=== PATIENT | female | born 1970 | race Two or more races ===

== ENCOUNTER 2017-08-15 10:39 | Emergency (ER) | payer BC, OTHER ==
[2017-08-15 10:46] VITALS: TEMP 97.8; BMI 34.7
[2017-08-15 13:33] LABS: URINE APPEARANCE CLEAR; URINE BILIRUBIN NEGATIVE (NEGATIVE); URINE BLOOD 2+ (NEGATIVE); URINE COLOR LT. YELLOW; URINE GLUCOSE (UA) NEGATIVE (NEGATIVE); URINE KETONE TRACE (NEGATIVE); URINE NITRITE NEGATIVE (NEGATIVE); URINE UROBILINOGEN 0.2 mg/dL (0.2-1.0)
[2017-08-15 13:35] LABS: URINE PROTEIN 1+ (NEGATIVE)
--- NOTE | 2017-08-15 13:35 | PDOC ---
History of Present Illness <Jimmie Gordon - Last Filed: 08/15/17 18:27> - General History Source: Patient Exam Limitations: No Limitations - History of Present Illness Initial Comments: 08/15/17 18:54 The patient is a 47 year old female, with a significant past medical history of Asthma, Sciatica who presents to the emergency department with bloody stool, interrmittent cramping LLQ abdominal pain and back pain for the past 2 days. Patient reports intermittent, burning LLQ abdominal pain with associated dark red bloody stool (with clots). Patient notes eating beets yesterday and reports this may be the cause of her bowel color. Patient denies any exacerbating factors however reports defecating alleviates her abdominal pain. Patient states her back pain feels different from sciatica and has been taking Motrin/ Aspirin for the past week. Patient reports dark urine however denies dysuria, frequency, urgency or hematuria. Patient also states she has been drinking more heavily since the holiday and has been eating more junk food recently. LMP: 2 weeks ago She denies chest pain, headache or dizziness. She denies fever, chills, nausea, vomit, diarrhea or constipation. She denies Patient denies sick contacts or recent travel. Allergies: shellfish Past surgical history: Gastric bypass (4 years ago) Social history: Current everyday smoker <Sulma Chavarria - Last Filed: 08/15/17 18:55> - General Chief Complaint: Rectal Bleed Stated Complaint: ABD PAIN, BLOOD IN STOOL Time Seen by Provider: 08/15/17 12:43 Past History - Past Medical History Anemia: No Asthma: Yes Cancer: No Cardiac Disorders: No CVA: No COPD: No CHF: No Dementia: No Diabetes: No GI Disorders: No Disorders: No HTN: No Hypercholesterolemia: No Liver Disease: No Seizures: No Thyroid Disease: No - Surgical History Abdominal Surgery: Yes (GASTRIC BYPASS 211) Appendectomy: No Cardiac Surgery: No Cholecystectomy: No Lung Surgery: No Neurologic Surgery: No Orthopedic Surgery: No - Immunization History Immunization Up to Date: Yes - Suicide/Smoking/Psychosocial Hx Smoking Status: No Smoking History: Current every day smoker Have you smoked in the past 12 months: Yes Number of Cigarettes Smoked Daily: 2 Information on smoking cessation initiated: Yes 'Breaking Loose' booklet given: 08/15/17 Hx Alcohol Use: No Drug/Substance Use Hx: No Substance Use Type: None Hx Substance Use Treatment: No <Jimmie Gordon - Last Filed: 08/15/17 18:27> <Sulma Chavarria - Last Filed: 08/15/17 18:55> - Past Medical History Allergies/Adverse Reactions: Allergies Allergy/AdvReac Type Severity Reaction Status Date / Time shellfish derived Allergy cant breath Verified 08/15/17 10:42 Home Medications: Ambulatory Orders NK [No Known Home Medication] 08/15/17 Review of Systems - Review of Systems Able to Perform ROS?: Yes Comments:: 08/15/17 18:55 CONSTITUTIONAL: No reported: Fever, Chills, Diaphoresis, Generalized Weakness, Malaise, Loss of Appetite HEENT: No reported: Rhinorrhea, Nasal Congestion, Throat Pain, Throat Swelling, Difficulty Swallowing, Mouth Swelling, Ear Pain, Eye Pain, Visual Changes CARDIOVASCULAR: No reported: Chest Pain, Syncope, Palpitations, Irregular Heart Rate, Lightheadedness, Peripheral Edema RESPIRATORY: No reported: Cough, Shortness of Breath, SOB with Exertion, Orthopnea, Wheezing, Stridor, Hemoptysis GASTROINTESTINAL: +bloody stool. +LLQ abdominal pain. No reported: Abdominal pain, Abdominal Distension, Nausea, Vomiting, Diarrhea, Constipation, Melena, Hematochezia GENITOURINARY: No reported: Dysuria, Frequency, Urgency, Hesitancy, Flank Pain, Genital Pain MUSCULOSKELETAL:+ Back pain No reported: Myalgia, Arthralgia, Joint Swelling, , Neck Pain SKIN: No reported: Rash, Itching, Pallor HEMEATOLOGIC/IMMUNOLOGIC: No reported: Easy Bleeding, Easy Bruising, Lymphadenopathy, Frequent infections ENDOCRINE: No reported: Unexplained Weight Gain, Unexplained Weight Loss, Heat Intolerance, Cold Intolerance NEUROLOGIC: No reported: Headache, Focal Weakness, Paresthesias, Vertigo, Lightheadedness, Unsteady Gait, Seizure, Mental Status Changes, Incontinence PSYCHIATRIC: No reported: Anxiety, Depression <Sulma Chavarria - Last Filed: 08/15/17 18:55> *Physical Exam - Vital Signs Last Vital Signs Temp Pulse Resp BP Pulse Ox 97.8 F 99 H 18 146/86 100 08/15/17 10:43 08/15/17 10:43 08/15/17 10:43 08/15/17 10:43 08/15/17 10:43 <Heidi,Jimmie - Last Filed: 08/15/17 18:27> - Vital Signs Last Vital Signs Temp Pulse Resp BP Pulse Ox 97.8 F 74 18 133/74 97 08/15/17 10:43 08/15/17 18:32 08/15/17 18:32 08/15/17 18:32 08/15/17 15:23 - Physical Exam Comments: 08/15/17 18:55 GENERAL: The patient is awake, alert, and fully oriented, Nontoxic - in no acute distress. HEAD: Normocephalic, atraumatic. EYES: extraocular movements intact, sclera anicteric, conjunctiva clear. ENT: Normal voice, Moist mucous membranes. NECK: Normal range of motion, supple LUNGS: Breath sounds equal, clear to auscultation bilaterally. No wheezes, no rhonchi, no rales. HEART: Regular rate and rhythm, without murmur, rub or gallop. ABDOMEN: +Mild LLQ tenderness. Soft, nontender, normoactive bowel sounds. No guarding, no rebound.No CVA tenderness EXTREMITIES: Normal range of motion, no edema. No clubbing or cyanosis. No cords, erythema, or tenderness. NEUROLOGICAL: No facial assymetry, Normal speech, PSYCH: Normal mood, normal affect. SKIN: Warm, Dry, normal turgor. RECTAL: +Maroon colored stool. No hemorrhoids. <Sulma Chavarria - Last Filed: 08/15/17 18:55> Heart Score/ECG Review - ECG Impressions Comment:: 08/15/17 14:15 Twelve-lead EKG was performed and reviewed by me. There is normal sinus rhythm with a normal rate. Rate of 82 The axis is normal. The intervals are normal. There are no ST or T wave abnormalities. <Jimmie Gordon - Last Filed: 08/15/17 18:27> ED Treatment Course - LABORATORY CBC & Chemistry Diagram: 08/15/17 13:50 08/15/17 13:50 <HeidiJimmie - Last Filed: 08/15/17 18:27> - LABORATORY CBC & Chemistry Diagram: 08/15/17 13:50 08/15/17 13:50 - ADDITIONAL ORDERS Additional order review: Laboratory Results 08/15/17 08/15/17 08/15/17 13:50 13:50 13:20 Sodium 139 Potassium 4.5 Chloride 108 H Carbon Dioxide 22 Anion Gap 9 BUN 11 D Creatinine 1.1 H D Creat Clearance w eGFR 53.24 Random Glucose 106 D Calcium 8.9 Total Bilirubin 0.4 AST 21 D ALT 24 D Alkaline Phosphatase 102 Total Protein 8.2 Albumin 4.0 Urine Color Urine Appearance Urine pH Ur Specific [place] Urine Protein Urine Glucose (UA) Urine Ketones Urine Blood Urine Nitrite Urine Bilirubin Urine Urobilinogen Urine WBC (Auto) Urine RBC (Auto) Ur Epithelial Cells Hyaline Casts Urine Mucus Urine HCG, Qual Negative Stool Occult Blood Negative 08/15/17 13:19 Sodium Potassium Chloride Carbon Dioxide Anion Gap BUN Creatinine Creat Clearance w eGFR Random Glucose Calcium Total Bilirubin AST ALT Alkaline Phosphatase Total Protein Albumin Urine Color Lt. yellow Urine Appearance Clear Urine pH 5.0 Ur Specific [place] >= 1.030 Urine Protein 1+ H Urine Glucose (UA) Negative Urine Ketones Trace H Urine Blood 2+ H Urine Nitrite Negative Urine Bilirubin Negative Urine Urobilinogen 0.2 Urine WBC (Auto) 1 Urine RBC (Auto) <1 Ur Epithelial Cells Rare Hyaline Casts 3 Urine Mucus Few Urine HCG, Qual Stool Occult Blood 08/15/17 13:50 RBC 4.91 MCV 82.8 MCHC 32.7 RDW 17.2 H D MPV 8.5 Neutrophils % 63.0 Lymphocytes % 30.0 Monocytes % 5.1 Eosinophils % 1.7 Basophils % 0.2 <Sulma Chavarria - Last Filed: 08/15/17 18:55> Medical Decision Making - Medical Decision Making 08/15/17 13:17 47y F hx of asthma and s/p gastric bypass presents with LLQ pain ntermittently/ bloating, diffuse, associated with a few episodes of dark red stool and dark urine but pt notes she had beets 2 days ago. No nsaid abuse or hx of ulcers. no associated cp, sob, palpitations, fever/chills, n/v. exam noted for reddish stool - no hemorroids no signiciant abdominal tenderness. differential includes possible LGIB, divertlicular disease, kidney stones, red stool from beets will ck labs, stool guaiac will erassess A portion of this note was documented by scribe services under my direction. I have reviewed the details of the note, within reason, and agree with the documentation with the following case summary and management plan written by me 08/15/17 16:42 blood work reivewed guaiac negativ estool +blood in UA awaiting CT to r/o kidney stone 08/15/17 18:01 CT negative for pathology The patient is feeling improved repeat abdominal exam is normal Will discharge the patient to follow up with primary care Return precautions were discussed I discussed the physical exam findings, ancillary test results and final diagnoses with the patient. I answered all of the patient's questions. The patient was satisfied with the care received and felt comfortable with the discharge plan and treatment plan. The patient will call their primary care physician within 24 hours to arrange follow-up and will return to the Emergency Department with any new, persistent or worsening symptoms. <Jimmie Gordon - Last Filed: 08/15/17 18:27> *DC/Admit/Observation/Transfer - Discharge Dispostion Admit: No <Jimmie Gordon - Last Filed: 08/15/17 18:27> - Attestations Scribe Attestion: 08/15/17 18:45 Documentation prepared by Sulma Chavarria, acting as medical office technologist for Jimmie Gordon MD <Sulma Chavarria - Last Filed: 08/15/17 18:55> Diagnosis at time of Disposition: Abdominal pain Qualifiers: Abdominal location: left lower quadrant Qualified Code(s): R10.32 - Left lower quadrant pain Hematuria Qualifiers: Hematuria type: other microscopic Qualified Code(s): R31.29 - Other microscopic hematuria - Discharge Dispostion Disposition: HOME Condition at time of disposition: Improved - Patient Instructions Printed Discharge Instructions: DI for Abdominal Pain-Adult Additional Instructions: Return to the emergency department immediately with ANY new, persistent or worsening symptoms including worsening abdominal pain, fevers, inability to tolerate oral intake, chest pain, shortness of breath or any other concerns. Your stool did not have any blood in it - i suspect it is due to the beet juice you drank. There was some blood in your urine - please follow up with your doctor in 3-4 days ot have this rechecked. Stay well hydrated. You MUST call and follow up with your doctor. Your emergency department visit is not complete without a followup with your doctor for reevaluation. Please make sure your doctor reviews the results of your emergency evaluation. Print Language: URDU - Post Discharge Activity Forms/Work/School Notes: Back to Work
[2017-08-15 13:45] LABS: URINE HYALINE CAST 3 /lpf; URINE MUCUS FEW; URINE RBC <1 /hpf (0-3); URINE WBC 1 /hpf (3-5)
[2017-08-15 14:04] LABS: BASOPHIL 0.2 % (0-2.0); EOSINOPHIL 1.7 % (0-4.5); MCH 27.1 pg (25.7-33.7); MCHC 32.7 g/dl (32.0-36.0); MEAN CELL VOLUME 82.8 fl (80-96); MEAN PLT VOLUME 8.5 fl (7.5-11.1); PLATELET COUNT 333 K/MM3 (134-434); RDW 17.2 % (11.6-15.6); WHITE BLOOD COUNT 11.6 K/mm3 (4.0-10.0)
[2017-08-15 15:29] LABS: ALK PHOS 102 U/L (45-117); ANION GAP 9 (8-16); BILIRUBIN,TOTAL 0.4 mg/dL (0.2-1.0); CALCIUM 8.9 mg/dL (8.5-10.1); CO2 22 mmol/L (21-32); CREATININE 1.1 mg/dL (0.55-1.02); GLUCOSE,RANDOM 106 mg/dL (74-106); SGOT/AST 21 U/L (15-37); SGPT/ALT 24 U/L (12-78); TOT PROT 8.2 g/dl (6.4-8.2)
[2017-08-15 17:27] LABS: URINE LEUK ESTERASE Negative (NEGATIVE)
[2017-08-15 18:32] VITALS: BP 133/74; PULSE 74
--- NOTE | 2017-08-16 13:03 | EKG ---
Test Reason : Blood Pressure : / mmHG Vent. Rate : 082 BPM Atrial Rate : 082 BPM P-R Int : 138 ms QRS Dur : 072 ms QT Int : 398 ms P-R-T Axes : 055 013 039 degrees QTc Int : 464 ms NORMAL SINUS RHYTHM POSSIBLE LEFT ATRIAL ENLARGEMENT ANTERIOR INFARCT , AGE UNDETERMINED ABNORMAL ECG WHEN COMPARED WITH ECG OF 31-MAY-2016 15:32, NONSPECIFIC T WAVE ABNORMALITY NOW EVIDENT IN LATERAL LEADS Confirmed by ANJANA LAMBERT MD ([id number]) on 08/16/2017 1:02:52 PM Referred By: Confirmed By:ANJANA LAMBERT MD
== END 2017-08-15 18:30 | disposition home or self-care (01) ==
LOC: JER 10:39
DX: R31.29 Other microscopic hematuria (principal); R10.32 Left lower quadrant pain; F17.210 Nicotine dependence, cigarettes, uncomplicated
CPT/HCPCS: 36415; 74176-TC; 80053; 81003; 81015; 82272; 84703; 85025; 93005; 93010; 99284-25

== ENCOUNTER 2017-11-15 17:40 | Emergency (ER) | payer BC, OTHER ==
--- NOTE | 2017-11-15 17:51 | PDOC ---
Rapid Medical Evaluation Time Seen by Provider: 11/15/17 17:48 Medical Evaluation: Allergies Allergy/AdvReac Type Severity Reaction Status Date / Time shellfish derived Allergy cant breath Verified 11/15/17 17:48 11/15/17 17:48 I have performed a brief in-person evaluation of this patient. The patient presents with a chief complaint of: low back/abdominal pain " burning to back" x 9 days, diagnosed w/ sciatica 5 years but "feels different", returned monday from [facility] and was lifting suitcases ALSO: feeling bloating, "i think i have a tampon stuck inside, i have a smell coming out since yesterday", denies dysuria, + urinary frequency Pertinent physical exam findings: N/A I have ordered the following: urine The patient will proceed to the ED for further evaluation. Discharge Disposition - Diagnosis Vaginal foreign body - Referrals - Patient Instructions - Post Discharge Activity
[2017-11-15 17:52] VITALS: BP 139/105; PULSE 76; TEMP 97.9; BMI 34.7
[2017-11-15 18:38] LABS: URINE APPEARANCE CLEAR; URINE BILIRUBIN NEGATIVE (NEGATIVE); URINE BLOOD 2+ (NEGATIVE); URINE COLOR YELLOW; URINE GLUCOSE (UA) NEGATIVE (NEGATIVE); URINE KETONE NEGATIVE (NEGATIVE); URINE LEUK ESTERASE NEGATIVE (NEGATIVE); URINE NITRITE NEGATIVE (NEGATIVE)
[2017-11-15 18:41] LABS: URINE PROTEIN 1+ (NEGATIVE)
[2017-11-15 18:42] LABS: HCG,QUALITATIVE URINE NEGATIVE
--- NOTE | 2017-11-15 18:42 | PDOC ---
*Physical Exam - Vital Signs Last Vital Signs Temp Pulse Resp BP Pulse Ox 97.9 F 76 19 139/105 100 11/15/17 17:48 11/15/17 17:48 11/15/17 17:48 11/15/17 17:48 11/15/17 17:48 Medical Decision Making - Medical Decision Making 11/15/17 18:39 Ms Cooley came in to the ER today due to retained tampon Present for approximately 3 weeks NO fevers or chills On examination: Tampon found in the vaginal vault Tampon retrieved and discarded UA pending Uhcg pending Will discharge to home on Flagyl Laboratory Tests 11/15/17 18:30 Urine Blood 2+ H Urine Nitrite Negative Ur Leukocyte Esterase Negative Urine HCG, Qual Negative *DC/Admit/Observation/Transfer Diagnosis at time of Disposition: Vaginal foreign body Qualifiers: Encounter type: initial encounter Qualified Code(s): T19.2XXA - Foreign body in vulva and vagina, initial encounter - Discharge Dispostion Disposition: HOME Condition at time of disposition: Good - Prescriptions Prescriptions: Metronidazole 500 mg PO BID #14 tablet - Referrals Referrals: Paco Hall [Primary Care Provider] - - Patient Instructions Printed Discharge Instructions: DI for Bacterial Vaginosis Additional Instructions: We have covered you with antibiotics for possible vaginal bacterial vaginosis. It is important that you do not drink alcohol while on this medication and for up to 24 hours after your last dose. If abdominal pain worsens and/or you develop nausea, vomiting or fever, return to ER immediately - Post Discharge Activity
--- NOTE | 2017-11-15 18:46 | PDOC ---
History of Present Illness - General Chief Complaint: Pain, Acute Stated Complaint: ABDOMINAL/BACK PAIN Time Seen by Provider: 11/15/17 17:48 History Source: Patient - History of Present Illness Quality: reports: cramping Abdominal Pain Onset Location: reports: suprapubic Past History - Past Medical History Allergies/Adverse Reactions: Allergies Allergy/AdvReac Type Severity Reaction Status Date / Time shellfish derived Allergy cant breath Verified 11/15/17 17:48 Home Medications: Ambulatory Orders Metronidazole 500 mg PO BID #14 tablet 11/15/17 Anemia: No Asthma: Yes Cancer: No Cardiac Disorders: No CVA: No COPD: No CHF: No Dementia: No Diabetes: No GI Disorders: No Disorders: No HTN: No Hypercholesterolemia: No Liver Disease: No Seizures: No Thyroid Disease: No - Surgical History Abdominal Surgery: Yes (GASTRIC BYPASS 211) Appendectomy: No Cardiac Surgery: No Cholecystectomy: No Lung Surgery: No Neurologic Surgery: No Orthopedic Surgery: No - Immunization History Immunization Up to Date: Yes - Suicide/Smoking/Psychosocial Hx Smoking Status: No Smoking History: Current some day smoker Have you smoked in the past 12 months: Yes Number of Cigarettes Smoked Daily: 2 Information on smoking cessation initiated: No 'Breaking Loose' booklet given: 08/15/17 Hx Alcohol Use: No Drug/Substance Use Hx: No Substance Use Type: None Hx Substance Use Treatment: No Review of Systems - Review of Systems Constitutional: No: Chills, Fever ABD/GI: No: Nausea, Vomiting : No: Burning, Dysuria, Flank Pain, Hematuria *Physical Exam - Vital Signs Last Vital Signs Temp Pulse Resp BP Pulse Ox 97.9 F 76 19 139/105 100 11/15/17 17:48 11/15/17 17:48 11/15/17 17:48 11/15/17 17:48 11/15/17 17:48 - Physical Exam General Appearance: Yes: Appropriately Dressed. No: Apparent Distress HEENT: positive: Normal Voice Neck: positive: Supple Respiratory/Chest: negative: Respiratory Distress Female Pelvic Exam: positive: normal external exam, cervical os closed, other ( foul smelling tampon removed from vault, no cmt/adnexal ttp). negative: normal adnexa, CMT, discharge Gastrointestinal/Abdominal: positive: Soft. negative: Tender Musculoskeletal: negative: CVA Tenderness Integumentary: positive: Dry, Warm Neurologic: positive: Fully Oriented, Alert, Normal Mood/Affect Medical Decision Making - Medical Decision Making 11/15/17 18:40 47-year-old female, history of sciatica, here with lower abdominal discomfort radiating to back with foul smelling vaginal discharge x several days. Patient denies any nausea, vomiting, fever or chills. States back pain, similar to her sciatica is mild. Patient states she suspects she might have left a tampon in from her last period > 2 weeks ago. States last night after having intercourse with her , she smelled an almost fecal odor coming from genitalia. See exam Vaginal foreign body Tampon removed from vault w/ no e/o PID -will cover w/ flagyl -ua/preg neg -strict return precautions *DC/Admit/Observation/Transfer Diagnosis at time of Disposition: Vaginal foreign body Qualifiers: Encounter type: initial encounter Qualified Code(s): T19.2XXA - Foreign body in vulva and vagina, initial encounter - Discharge Dispostion Disposition: HOME Condition at time of disposition: Good - Prescriptions Prescriptions: Metronidazole 500 mg PO BID #14 tablet - Referrals Referrals: Paco Hall [Primary Care Provider] - - Patient Instructions Printed Discharge Instructions: DI for Bacterial Vaginosis Additional Instructions: We have covered you with antibiotics for possible vaginal bacterial vaginosis. It is important that you do not drink alcohol while on this medication and for up to 24 hours after your last dose. If abdominal pain worsens and/or you develop nausea, vomiting or fever, return to ER immediately - Post Discharge Activity
[2017-11-15 18:50] LABS: EPI CELLS RARE /HPF (FEW); URINE HYALINE CAST 1 /lpf; URINE MUCUS RARE
== END 2017-11-15 18:59 | disposition home or self-care (01) ==
LOC: JER 17:40
DX: T19.2XXA Foreign body in vulva and vagina, initial encounter (principal); X58.XXXA Exposure to other specified factors, initial encounter; Y93.89 Activity, other specified; Y92.018 Other place in single-family (private) house as the place of occurrence of the external cause
CPT/HCPCS: 81003; 81015; 84703; 87086; 99284-25

== ENCOUNTER 2020-05-17 02:57 | Emergency (ER) | payer BC, OTHER ==
[2020-05-17 03:28] VITALS: BMI 37.6
[2020-05-17] MEDS ORDERED: ASPIRIN 81 MG CHEWABLE TABLETS PO ONE (03:54)
[2020-05-17] MEDS ORDERED: SODIUM CHLORIDE 0.9% 500 ML INFUS.BAG IV ONE (03:54)
[2020-05-17] MEDS ORDERED: FAMOTIDINE 20 MG/50 ML IVPB 20 MG/50 ML MG IVPB ONE ×2 (03:54→04:11)
[2020-05-17] MEDS ORDERED: MAG HYDROX/AL HYDROX/SIMETH 30 ML UNIT-DOSE CUP PO ONE (03:55)
[2020-05-17] MEDS ORDERED: ASPIRIN 81 MG CHEWABLE TABLETS ONE (04:00)
[2020-05-17] MEDS ORDERED: MAG HYDROX/AL HYDROX/SIMETH 30 ML UNIT-DOSE CUP ONE (04:00)
[2020-05-17 04:08] LABS: BASO % 0.3 % (0-2.0); EOS % 1.9 % (0-4.5); HEMATOCRIT 37.5 % (32.4-45.2); HEMOGLOBIN 12.3 GM/dL (10.7-15.3); LYMPH % 36.1 % (8-40); MCHC 32.8 g/dl (32.0-36.0); MEAN CELL VOLUME 85.5 fl (80-96); MEAN PLT VOLUME 10.1 fl (7.5-11.1); MONO % 6.5 % (3.8-10.2); NEUT % 55.2 % (42.8-82.8); PLATELET COUNT 208 K/MM3 (134-434); RBC 4.38 M/mm3 (3.60-5.2); RDW 13.6 % (11.6-15.6); WHITE BLOOD COUNT 9.9 K/mm3 (4.0-10.0)
--- NOTE | 2020-05-17 04:09 | PDOC ---
History of Present Illness - General Chief Complaint: Chest Pain Stated Complaint: CHEST PAIN/DIFF BREATHING Time Seen by Provider: 05/17/20 03:31 - History of Present Illness Initial Comments: 05/17/20 04:03 50 y/o F hx of gastric bypass, presents to the ED with 1 week of abdominal pain radiating to the left side of her chest. She reports pain as left sided pain radiating from her upper abdomen to her mid and left chest. pt reports 2 visits to urgent care in the last week for abdominal pain. ultrasound was done showing fatty liver with no other findings. pt was given tramadol and sent home. awoke 6hrs ago with pain radiating to her chest. tested negative for covid 5 days ago. denies;fevers, chills, vomiting, ocp use, hx of clots, recent surgery PMHx: as noted above ROS: as noted SHx: Denies Etoh, IVDA, tobacco use Allergies: NKDA ROS: GENERAL/CONSTITUTIONAL: No fever or chills. No weakness. HEAD, EYES, EARS, NOSE AND THROAT: No change in vision. No ear pain or discharge. No sore throat. CARDIOVASCULAR: +chest pain, +sob RESPIRATORY: No cough, wheezing, or hemoptysis. GASTROINTESTINAL: No nausea, vomiting, diarrhea or constipation. GENITOURINARY: No dysuria, frequency, or change in urination. MUSCULOSKELETAL: No joint or muscle swelling or pain. SKIN: No rash NEUROLOGIC: No headache, vertigo, loss of consciousness, or change in strength/sensation. ENDOCRINE: No increased thirst. No abnormal weight change HEMATOLOGIC/LYMPHATIC: No anemia, easy bleeding, or history of blood clots. ALLERGIC/IMMUNOLOGIC: No hives or skin allergy. PE: GENERAL: Awake, alert, and fully oriented, in no acute distress HEAD: No signs of trauma, normocephalic, atraumatic EYES: PERRLA, EOMI, sclera anicteric, conjunctiva clear ENT: Auricles normal inspection, hearing grossly normal, nares patent, oropharynx clear without exudates. Moist mucosa NECK: Normal ROM, supple, no lymphadenopathy, JVD, or masses LUNGS: No distress, speaks full sentences, clear to auscultation bilaterally HEART: Regular rate and rhythm, normal S1 and S2, no murmurs, rubs or gallops, peripheral pulses normal and equal bilaterally. ABDOMEN: Soft, ttp in LUQ with guarding normoactive bowel sounds. No guarding, no rebound. No masses EXTREMITIES : Normal inspection, Normal range of motion, no edema. No clubbing or cyanosis NEUROLOGICAL: Cranial nerves II through XII grossly intact. Normal speech, normal gait, no focal sensorimotor deficits SKIN: Warm, Dry, normal turgor, no rashes or lesions noted 05/17/20 04:09 05/17/20 04:48 Past History - Medical History Allergies/Adverse Reactions: Allergies Allergy/AdvReac Type Severity Reaction Status Date / Time shellfish derived Allergy cant breath Verified 11/15/17 17:48 Home Medications: Ambulatory Orders Metronidazole 500 mg PO BID #14 tablet 11/15/17 Famotidine [Pepcid] 40 mg PO DAILY #14 tablet 05/17/20 Anemia: No Asthma: Yes Cancer: No Cardiac Disorders: No CVA: No COPD: No CHF: No Dementia: No Diabetes: No GI Disorders: No Disorders: No HTN: No Hypercholesterolemia: No Liver Disease: No Seizures: No Thyroid Disease: No - Surgical History Abdominal Surgery: Yes (GASTRIC BYPASS 211) Appendectomy: No Cardiac Surgery: No Cholecystectomy: No Lung Surgery: No Neurologic Surgery: No Orthopedic Surgery: No - Reproductive History Is Patient Now?: No - Immunization History Immunization Up to Date: Yes - Psycho-Social/Smoking History Smoking Status: No Smoking History: Never smoked Have you smoked in the past 12 months: Yes Number of Cigarettes Smoked Daily: 2 'Breaking Loose' booklet given: 08/15/17 - Substance Abuse Hx (Audit-C & DAST Scrn) How often the patient has a drink containing alcohol: Never Score: In Men: 4 or > Positive; In Women: 3 or > Positive: 0 Screen Result (Pos requires Nsg. Audit-10AR): Negative *Physical Exam - Vital Signs Last Vital Signs Temp Pulse Resp BP Pulse Ox 97.9 F 68 20 165/92 100 05/17/20 03:26 05/17/20 03:26 05/17/20 03:26 05/17/20 03:26 05/17/20 03:26 ED Treatment Course - LABORATORY CBC & Chemistry Diagram: 05/17/20 03:30 05/17/20 03:30 - RADIOLOGY Radiology Studies Ordered: Category Date Time Status CHEST X-RAY PORTABLE* [RAD] Stat Radiology 05/17/20 03:32 Ordered Medical Decision Making - Medical Decision Making 05/17/20 04:03 50 y/o F hx of gastric bypass, presents to the ED with 1 week of abdominal pain radiating to the left side of her chest. She reports pain as left sided pain radiating from her upper abdomen to her mid and left chest. MDM DDx including but not limited to: acs, peptic ulcer/gastritis, pancreatitis, perforation secondary to ulcer, Workup: cbc, cmp lipase, abdomen and pelvis ct, TX: Scores - HEART score - EKG: normal sinus rhythm,HR 66bpm, NJ 132ms, QRS 72 ms, QTc 457ms ED course meds: Re-assessment: Pt reports only mild improvement in pain after pepcid, mylanta and fluids, carafate and tylenol added. will reassess and sign out to day team pt reports she has gi follow up on june 01 via [facility] abdomen and pelvis ct FINDINGS: Lung bases are clear. The visualized cardiac chambers are normal size and configuration. 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 No renal stones or hydronephrosis. Normal liver, gallbladder, pancreas, spleen, adrenal glands . Status post gastric bypass without bowel obstruction or inflammation.. There is no aortic aneurysm. There is no significant retroperitoneal lymphadenopathy. The pelvic small and large bowel are normal. The appendix is normal. The uterus and adnexal structures are normal. Urinary bladder is unremarkable. There is no pelvic free fluid. No discrete pelvic lymphadenopathy is identified. A small fat-containing right inguinal hernia is noted IMPRESSION: No evidence of acute pathology. Ectopic pelvic right kidney 05/17/20 06:36 Discharge - Discharge Information Problems reviewed: Yes Clinical Impression/Diagnosis: Acid reflux disease Disposition: HOME - Admission No - Additional Discharge Information Prescriptions: Famotidine [Pepcid] 40 mg PO DAILY #14 tablet - Follow up/Referral Referrals: Paco Hall [Primary Care Provider] - - Patient Discharge Instructions Patient Printed Discharge Instructions: DI for Chest Pain, DI for Gastritis Additional Instructions: HOME CARE INSTRUCTIONS: For the next few days, avoid physical activities that bring on chest pain. Continue physical activities as directed. Do not smoke and avoid drinking alcohol. Only take infj-aki-ckezrzk or prescription medicine for pain, discomfort, or fever as directed by your physician. Follow your physician's suggestions for further testing if your chest pain does not go away. Keep any follow-up appointments you made. If there is any problem keeping an appointment, please call to reschedule. SEEK MEDICAL CARE IF: You think you are having problems from the medicine you are taking. Read your medicine instructions carefully. You develop chest pain does not go away, even after treatment. SEEK IMMEDIATE MEDICAL CARE IF: You have increased chest pain or pain that spreads to your arm, neck, jaw, back, or abdomen. You develop shortness of breath, an increasing cough, or you start coughing up blood. You have severe back or abdominal pain, feel nauseous, or vomit You develop severe weakness, fainting, or chills. You have a fever. THESE ARE EMERGENCIES - Do not drive yourself to the hospital. you have follow up with your GI doctor at [facility] on the . make sure you keep that appointment and take medications prescribed to you as directed. - Post Discharge Activity
[2020-05-17 04:21] LABS: ALBUMIN 3.6 g/dl (3.4-5.0); ALK PHOS 101 U/L (45-117); ANION GAP 10 MMOL/L (8-16); BILIRUBIN,TOTAL 0.2 mg/dL (0.2-1); BLOOD UREA NITROGEN 12.3 mg/dL (7-18); CALCIUM 8.7 mg/dL (8.5-10.1); CHLORIDE 110 mmol/L (98-107); CO2 22 mmol/L (21-32); CREATININE 1.1 mg/dL (0.55-1.3); GLUCOSE,RANDOM 101 mg/dL (74-106); LIPASE 144 U/L (73-393); SGOT/AST 32 U/L (15-37); SGPT/ALT 45 U/L (13-61); SODIUM 142 mmol/L (136-145); TOT PROT 7.2 g/dl (6.4-8.2)
--- NOTE | 2020-05-17 04:51 | PDOC ---
Attending Attestation - Resident Resident Name: Sandra Sharp - ED Attending Attestation I have performed the following: I have examined & evaluated the patient, The case was reviewed & discussed with the resident, I agree w/resident's findings & plan, Exceptions are as noted - HPI HPI: 05/17/20 04:46 50 yo F p/w abdominal pain radiating to her chest x1 week. Seen at urgent care for similar symptoms and had sono done which showed fatty liver but otherwise unremarkable. Denies n/v. Denies diarrhea or constipation. Denies cough, fevers, nasal congestion or sick contacts. Reports occasional SOB when she is lying flat. States abdominal pain is L sided and feels like she has gas. - Physicial Exam PE: 05/17/20 04:48 General: non-toxic appearing Chest: CTAB, good air entry CVS: + s1 s2, RRR Abdomen: obese limiting exam, soft, mild epigastric ttp, no rebound, no guarding, negative cavanaugh's - Medical Decision Making 05/17/20 04:49 50 yo F with abdominal pain radiating to chest , possible GERD vs. gastritis vs. enteritis vs. lower suspicion for ACS and EKG without ischemic changes. Lower suspicion for obstruction as patient denies change in bowel habits. Also no urinary complaints to suggest UTI/pyelo. Very unlikely dissection or AAA given duration of symptoms. Given h/o gastric bypass possible internal hernia. Plan: -labs -cxr -CT a/p -pain control as needed -reassess This clinical encounter is taking place during a federal and state health care emergency attributable to the novel [place] Virus pandemic. The [employer] of the Department of Health and Human Services has declared, pursuant to the Public Health Service Act 319F-3 (42 U.S.C. 247d-6d), that a covered persons activities related to medical countermeasures against COVID-19 will be immune from liability under Federal and State law. Discharge - Discharge Information Problems reviewed: Yes Clinical Impression/Diagnosis: Acid reflux disease Qualifiers: Esophagitis presence: esophagitis presence not specified Qualified Code(s): K21.9 - Gastro-esophageal reflux disease without esophagitis Condition: Stable Disposition: HOME - Additional Discharge Information Prescriptions: Famotidine [Pepcid] 40 mg PO DAILY #14 tablet - Follow up/Referral Referrals: Chad Aaron MD [Staff Physician] - Paco Hall [Primary Care Provider] - - Patient Discharge Instructions Patient Printed Discharge Instructions: DI for Gastritis, DI for Chest Pain Additional Instructions: HOME CARE INSTRUCTIONS: For the next few days, avoid physical activities that bring on chest pain. Continue physical activities as directed. Do not smoke and avoid drinking alcohol. Only take ikwj-geu-ffzksbf or prescription medicine for pain, discomfort, or fever as directed by your physician. Follow your physician's suggestions for further testing if your chest pain does not go away. Keep any follow-up appointments you made. If there is any problem keeping an appointment, please call to reschedule. SEEK MEDICAL CARE IF: You think you are having problems from the medicine you are taking. Read your medicine instructions carefully. You develop chest pain does not go away, even after treatment. SEEK IMMEDIATE MEDICAL CARE IF: You have increased chest pain or pain that spreads to your arm, neck, jaw, back, or abdomen. You develop shortness of breath, an increasing cough, or you start coughing up blood. You have severe back or abdominal pain, feel nauseous, or vomit You develop severe weakness, fainting, or chills. You have a fever. THESE ARE EMERGENCIES - Do not drive yourself to the hospital. you have follow up with your GI doctor at [facility] on the . make sure you keep that appointment and take medications prescribed to you as directed. - Post Discharge Activity
[2020-05-17 05:50] VITALS: TEMP 98
[2020-05-17] MEDS ORDERED: ACETAMINOPHEN 1000 MG/100 ML VIAL (NON FORMULARY) IVPB ONE (06:26)
[2020-05-17] MEDS ORDERED: SUCRALFATE 1 GM/10 ML UNIT DOSE CUPS PO ONE (06:40)
--- NOTE | 2020-05-17 07:13 | PDOC ---
*Physical Exam - Vital Signs Last Vital Signs Temp Pulse Resp BP Pulse Ox 98 F 70 17 151/88 98 05/17/20 05:49 05/17/20 05:49 05/17/20 05:49 05/17/20 05:49 05/17/20 05:49 ED Treatment Course - LABORATORY CBC & Chemistry Diagram: 05/17/20 03:30 05/17/20 03:30 - ADDITIONAL ORDERS Additional order review: Laboratory Results 05/17/20 05/17/20 03:30 03:26 Sodium 142 Potassium 4.0 Chloride 110 H Carbon Dioxide 22 Anion Gap 10 BUN 12.3 Creatinine 1.1 Est GFR (CKD-EPI)AfAm 67.79 Est GFR (CKD-EPI)NonAf 58.49 Random Glucose 101 Calcium 8.7 Total Bilirubin 0.2 AST 32 ALT 45 Alkaline Phosphatase 101 Troponin I < 0.02 Total Protein 7.2 Albumin 3.6 Lipase 144 Serum , Qual Negative 05/17/20 03:30 RBC 4.38 MCV 85.5 MCHC 32.8 RDW 13.6 D MPV 10.1 D Neutrophils % 55.2 Lymphocytes % 36.1 D Monocytes % 6.5 Eosinophils % 1.9 Basophils % 0.3 - Medications Given in the ED: ED Medications Discontinued Medications Generic Name Dose Route Start Last Admin Trade Name Freq PRN Reason Stop Dose Admin Acetaminophen 1,000 mg 05/17/20 06:26 05/17/20 06:52 Ofirmev Injection - IVPB 05/17/20 06:27 1,000 mg ONCE ONE Administration Al Hydroxide/Mg Hydroxide 30 ml 05/17/20 03:55 05/17/20 04:10 Mylanta Oral Suspension - PO 05/17/20 03:56 30 ml ONCE ONE Administration Aspirin 324 mg 05/17/20 03:54 05/17/20 04:10 Asa - PO 05/17/20 03:55 324 mg ONCE ONE Administration Famotidine/Sodium Chloride 20 mg in 50 mls @ 100 mls/hr 05/17/20 03:54 05/17/20 04:20 Pepcid 20 Mg Premixed Ivpb - IVPB 05/17/20 04:23 100 mls/hr ONCE ONE Administration Sodium Chloride 1,000 ml 05/17/20 03:54 05/17/20 04:10 Normal Saline - IV 05/17/20 03:55 1,000 ml ONCE ONE Administration Sucralfate 1 gm 05/17/20 06:40 05/17/20 06:52 Carafate Oral Suspension - PO 05/17/20 06:41 1 gm ONCE ONE Administration Medical Decision Making - Medical Decision Making pt signed out by night team 50 y/o F hx of gastric bypass, presents to the ED with 1 week of abdominal pain. pending completion of Tylenol, fluids will give additional GI f/u Disposition Discharge home Discharge - Discharge Information Problems reviewed: Yes Clinical Impression/Diagnosis: Acid reflux disease Qualifiers: Esophagitis presence: esophagitis presence not specified Qualified Code(s): K21.9 - Gastro-esophageal reflux disease without esophagitis Condition: Stable Disposition: HOME - Additional Discharge Information Prescriptions: Famotidine [Pepcid] 40 mg PO DAILY #14 tablet - Follow up/Referral Referrals: Paco Hall [Primary Care Provider] - Chad Aaron MD [Staff Physician] - - Patient Discharge Instructions Patient Printed Discharge Instructions: DI for Gastritis, DI for Chest Pain Additional Instructions: HOME CARE INSTRUCTIONS: For the next few days, avoid physical activities that bring on chest pain. Continue physical activities as directed. Do not smoke and avoid drinking alcohol. Only take jyqd-oqv-lpfqheh or prescription medicine for pain, discomfort, or fever as directed by your physician. Follow your phys ician's suggestions for further testing if your chest pain does not go away. Keep any follow-up appointments you made. If there is any problem keeping an appointment, please call to reschedule. SEEK MEDICAL CARE IF: You think you are having problems from the medicine you are taking. Read your medicine instructions carefully. You develop chest pain does not go away, even after treatment. SEEK IMMEDIATE MEDICAL CARE IF: You have increased chest pain or pain that spreads to your arm, neck, jaw, back, or abdomen. You develop shortness of breath, an increasing cough, or you start coughing up blood. You have severe back or abdominal pain, feel nauseous, or vomit You develop severe weakness, fainting, or chills. You have a fever. THESE ARE EMERGENCIES - Do not drive yourself to the hospital. you have follow up with your GI doctor at [facility] on the . make sure you keep that appointment and take medications prescribed to you as directed. - Post Discharge Activity
[2020-05-17 07:40] VITALS: BP 141/79; PULSE 66
--- NOTE | 2020-05-17 11:55 | EKG ---
Test Reason : Blood Pressure : / mmHG Vent. Rate : 066 BPM Atrial Rate : 066 BPM P-R Int : 132 ms QRS Dur : 072 ms QT Int : 436 ms P-R-T Axes : 018 000 036 degrees QTc Int : 457 ms NORMAL SINUS RHYTHM MINIMAL VOLTAGE CRITERIA FOR LVH, MAY BE NORMAL VARIANT ABNORMAL ECG Confirmed by NED SMITH MD ([id number]) on 05/17/2020 11:55:15 AM Referred By: Confirmed By:NED SMITH MD
== END 2020-05-17 07:40 | disposition home or self-care (01) ==
LOC: JER 02:57
PROC: 3E0333Z Introduction of Anti-inflammatory into Peripheral Vein, Percutaneous Approach (ICD-10-PCS; principal; 2020-05-17)
PROC: 3E033GC Introduction of Other Therapeutic Substance into Peripheral Vein, Percutaneous Approach (ICD-10-PCS; 2020-05-17)
DX: K21.9 Gastro-esophageal reflux disease without esophagitis (principal)
CPT/HCPCS: 36415; 71046-TC-FY; 74177-TC; 80053; 83690; 84484; 84703; 85025; 93005; 93010; 99285-25; J0131; Q9967

== ENCOUNTER 2020-06-03 12:45 | Day surgery (SDC) | payer BC, OTHER ==
--- OUTSIDE RECORDS SUMMARY | 2020-06-03 09:48 | XMS ---
:1970 Author Organization [facility] Support Name Relationship Address Phone PEGGY PERALTA DAUGHTER [address] [place] [address] [facility]PT OF EDUCATIO Unavailable [address] [place] [address] VICKY MEHTA [address] [place] [address] VICKY MEHTA Spouse [address] [place] [place] [address] Re-disclosure Warning The records that you are about to access may contain information from federally- assisted alcohol or drug abuse programs. If such information is present, then the following federally mandated warning applies: This information has been disclosed to you from records protected by federal confidentiality rules (42 CFR part 2). The federal rules prohibit you from making any further disclosure of this information unless further disclosure is expressly permitted by the written consent of the person to whom it pertains or as otherwise permitted by 42 CFR part 2. A general authorization for the release of medical or other information is NOT sufficient for this purpose. The Federal rules restrict any use of the information to criminally investigate or prosecute any alcohol or drug abuse patient.The records that you are about to access may contain highly sensitive health information, the redisclosure of which is protected by Article 27-F of the [facility] Public Health law. If you continue you may haveaccess to information: Regarding HIV / AIDS; Provided by facilities licensed or operated by the [facility] Office of Mental Health; or Provided by the [facility] Office for People With Developmental Disabilities. If such information is present, then the following [facility] mandated warning applies: This information has been disclosed to you from confidential records which are protected by state law. State law prohibits you from making any further disclosure of this information without the specific written consent of the person to whom it pertains, or as otherwise permitted by law. Any unauthorized further disclosure in violation of state law may result in a fine or halfway sentence or both. A general authorization for the release of medical or other information is NOT sufficient authorization for further disclosure. Insurance Providers Payer Policy type Policy ID Covered Covered democrat's Policy Pl an name / Coverage democrat ID relationship to [employer] ormation type flynn BC PPO [id number] SP [id number] [facility] [address] [id number] SP [id number] OUTPT BC PPO [id number] SP [id number] [facility] [address] [id number] SP [id number] OUTPT Results ID Date Data Source [id number] 05/31/2020 09:43:00 AM EDT [facility] Name Value Range Interpretation Description Data Sup porting Code Source(s) Document(s ) SARS [facility] coronavirus 2 RNA This lab was ordered by [facility] and reported by [facility]. ID Date Data Source [id number] 05/12/2020 12:30:00 PM EDT [facility] Name Value Range Interpretation Code Description Data Ayleen rce(s) Supporting Document(s ) COV2 [facility] This lab was ordered by [facility] and reported by [facility]. Procedure
[2020-06-03 14:01] VITALS: BMI 35.8
[2020-06-03] MEDS ORDERED: PROPOFOL 20 ML ONE ×2 (14:24)
--- OUTSIDE RECORDS SUMMARY | 2020-06-03 17:23 | XMS ---
:1970 Author Organization [facility] Support Name Relationship Address Phone PEGGY PERALTA DAUGHTER [address] [place] [address] [facility] DEPT OF EDUCATIO Unavailable [address] [place] [address] VICKY MEHT[address] [place] [address] VICKY MEHTA Sp[address] [place] [address] Re-disclosure Warning The records that you are [...] is protected by Article 27-F of the [facility] Public Health law. If you continue you may haveaccess to information: Regarding HIV / AIDS; Provided by facilities licensed or operated by the [facility] Office of Mental Health; or Provided by the [facility] Office for People With Developmental Disabilities. If such information is present, then the following [facility] mandated warning applies: This information has [...] law may result in a fine or skilled nursing sentence or both. A general authorization for the release of medical or other information is NOT sufficient authorization for further disclosure. Insurance Providers Payer Policy type Policy ID Covered Covered green party's Policy Pl an name / Coverage green party ID relationship to [employer] or[employer] type flynn BC PPO [id number] SP [id number] [facility] [id number] SP [id number] OUTPT BC PPO [id number] SP [id number] [facility] [id number] SP [id number] OUTPT Results ID Date Data Source [id number] 05/31/2020 09:43:00 AM EDT [facility] Name Value Range Interpretation Description Data Sup porting Code Source(s) Document(s ) SARS [facility] coronavirus 2 RNA This lab was ordered by [facility] and reported by [facility]. ID Date Data Source [id number] 05/12/2020 12:30:00 PM EDT [facility] Name Value Range Interpretation Code Description Data Ayleen rce(s) Supporting Document(s ) COV2 [facility] This lab was ordered by [facility] and reported by [facility]. Procedure
[2020-06-03 18:08] VITALS: TEMP 97.8
[2020-06-03 18:12] VITALS: BP 120/85; PULSE 75
--- NOTE | 2020-06-05 19:25 | PATH ---
Surgical Pathology Report Patient Name: CARI PERALTA [facility]. Rec. #: [id number] /Age/Gender: 1970 (Age: 50) / F Account: [id number] Location: [facility] Taken: 06/03/2020 Received: 06/03/2020 Reported: 06/05/2020 Physicians: Terri Malone M.D. Specimen(s) Received A: SMALL BOWEL B: GASTRIC POUCH C: GE JUNCTION Clinical History Abdominal pain Postoperative diagnosis: Gastritis, postsurgical anatomy Final Diagnosis A. SMALL BOWEL, BIOPSY: SMALL BOWEL MUCOSA WITHOUT SIGNIFICANT PATHOLOGIC FINDINGS. B. GASTRIC POUCH, BIOPSY: GASTRIC BODY MUCOSA WITH MILD CHRONIC GASTRITIS. IMMUNOHISTOCHEMICAL STAIN FOR H. PYLORI IS NEGATIVE. C. GE JUNCTION, BIOPSY: GASTRIC CARDIAC TYPE MUCOSA WITH MILD CHRONIC GASTRITIS. NO INTESTINAL METAPLASIA, DYSPLASIA, OR SQUAMOUS MUCOSA IDENTIFIED. NO HELICOBACTER-LIKE ORGANISMS IDENTIFIED. Positive and negative controls (internal if applicable) show appropriate results. Electronically Signed Terri Prescott M.D. Gross Description A. Received in formalin, labeled "small bowel" is a wilson, irregular portion of soft tissue measuring 0.4 cm. in greatest dimension. The specimen is submitted in toto in one cassette. B. Received in formalin, labeled "gastric pouch" is a wilson, irregular portion of soft tissue measuring 0.5 cm. in greatest dimension. The specimen is submitted in toto in one cassette. C. Received in formalin, labeled "GE junction" is a wilson, irregular portion of soft tissue measuring 0.3 cm. in greatest dimension. The specimen is submitted in toto in one cassette. [facility]/06/04/2020 [facility]/06/04/2020
== END 2020-06-03 16:10 | disposition home or self-care (01) ==
LOC: FASU-ENDO 12:45
PROVIDERS: ATTEND Internal Medicine Gastroenterology
PROC: 0DB88ZX Excision of Small Intestine, Via Natural or Artificial Opening Endoscopic, Diagnostic (ICD-10-PCS; 2020-06-03)
PROC: 0DB68ZX Excision of Stomach, Via Natural or Artificial Opening Endoscopic, Diagnostic (ICD-10-PCS; 2020-06-03)
PROC: 0DB48ZX Excision of Esophagogastric Junction, Via Natural or Artificial Opening Endoscopic, Diagnostic (ICD-10-PCS; principal; 2020-06-03 14:34)
DX: K29.50 Unspecified chronic gastritis without bleeding (principal); R10.13 Epigastric pain
CPT/HCPCS: 84703; 88305-TC; 88342-TC

== ENCOUNTER 2020-06-05 05:22 | Day surgery (SDC) | payer BC, OTHER ==
[2020-06-04 14:46] VITALS: BMI 35.8
--- OUTSIDE RECORDS SUMMARY | 2020-06-05 05:27 | XMS ---
:1970 Author Organization [facility] Support Name Relationship Address Phone PEGGY PERALTA DAUGHTER [address] [place] [address] [facility] DEPT OF EDUCATIO Unavailable [address] [place] [address] VICKY MEHTA [address] [place] [address] VICKY MEHTA Spouse [address] [place] [place] [address] Re-disclosure Warning The records that you are [...] is protected by Article 27-F of the [facility] Public Health law. If you continue you may haveaccess to information: Regarding HIV / AIDS; Provided by facilities licensed or operated by the [facility] Office of Mental Health; or Provided by the [facility] Office for People With Developmental Disabilities. If such information is present, then the following [facility] mandated warning applies: This information [...] law may result in a fine or correction sentence or both. A general authorization for the release of medical or other information is NOT sufficient authorization for further disclosure. Insurance Providers Payer Policy type Policy ID Covered Covered constitution party's Policy Pl an name / Coverage constitution party ID relationship to [employer] orm[employer] type flynn BC PPO [id number] SP [id number] [facility] [id number] SP [id number] OUTPT BC PPO [id number] SP [id number] [facility] [id number] SP [id number] OUTPT Results ID Date Data Source [id number] 05/31/2020 09:43:00 AM EDT [facility] Name Value Range Interpretation Description Data Sup porting Code Source(s) Document(s ) SARS [facility] coronavirus 2 RNA This lab was ordered by [facility] and reported by [facility]. ID Date Data Source [id number] 05/12/2020 12:30:00 PM EDT [facility] Name Value Range Interpretation Code Description Data Ayleen rce(s) Supporting Document(s ) COV2 [facility] This lab was ordered by [facility]IO [facility] and reported by [facility]. Procedure
--- NOTE | 2020-06-05 14:10 | HP ---
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: No: Alzheimer's, CVA, Dementia, Migraine, Multiple Sclerosis, Peripheral Neuropathy, Parkinson's, Seizure, Syncope, TIA, Vertigo, Other Cardiovascular: No: AFIB, Aneurysm, Aortic Insufficiency, Aortic Stenosis, CAD, CHF, Deep Vein Thrombosis, HTN, Hyperlipdemia, ND, Mitral Insufficiency, Mitral Stenosis, Murmur, Pulmonary Hypertension, Other Pulmonary: No: Asthma, Bronchitis, Cancer, COPD, O2 Dependent, Pneumonia, Previously Intubated, Pulmonary Embolus, Pulmonary Fibrosis, Sleep Apnea, Other Gastrointestinal: No: Ascites, Cancer, Constipation, Crohn's Disease, Diverticulitis, Diverticulosis, Esophageal Varices, Gastritis, GERD, GI Bleed, Hemorrhoids, Hiatal Hernia, Inflamatory Bowel Disease, Irritable Bowel Disease, Pancreatitis, Peptic Ulcer Disease, Ulcerative Colitis, Other Hepatobiliary: No: Cirrhosis, Cholelithiasis, Cholecystitis, Choledocholithiasis, Hepatitis A, Hepatitis B, Hepatitis C, Other Renal/: No: Renal Failure, Renal Inusuff, BPH, Cancer, Hematuria, Hemodialysis, Neurogenic Bladder, Renal Calculi, UTI, Other Reproductive: No: Ectopic , Endometriosis, Fibroids, PID, Polycystic Ovary Syndrome, Postmenopausal, Other ...LMP: 06/03/20 ...: No Heme/Onc: No: Anemia, B12 Deficiency, Bleeding Disorder, Cancer, Current Chemotherapy, Current Radiation Therapy, Hemochromatosis, Hypercoaguable State, Myeloproliferative Synd, Sickle Cell Disease, Sickle Cell Trait, Thrombocytopenia, Other Infectious Disease: No: AIDS, C-Diff, Herpes Zoster, HIV, MRSA, STD's, Tuberculosis, VREF, Other Psych: No: Addictions, Anxiety, Bipolar, Depression, Panic, Psychosis, Schizophrenia, Other Musculoskeletal: No: Bursitis, Chronic low back pain, Hemiparesis, Hemiplegia, Osteoarthritis, Paraplegia, Other Rheumatology: No: Fibromyalgia, Gout, Lupus, Rheumatoid Arthritis, Sarcoidosis, Vasculitis, Other ENT: No: Allergic Rhinitis, Sinusitis, Other Endocrine: No: Santy's Disease, Victoria's Disease, Diabetes Insipidus, Diabetes Mellitus, Hyperparathyroidism, Hyperthyroidism, Hypothyroidism, Osteopenia, SIADH, Other Dermatology: No: Basal Cell, Cellulitis, Eczema, Melanoma, Psoriasis, Squamous Cell, Other - Past Surgical History Past Surgical History: No: None, AAA Repair, AICD, Amputation, Appendectomy, Arthrosocopy, AV Fistula/Graft, Bariatric Surgery, Breast Biopsy, Bypass, CABG, Carotid Endarterectomy, Cataract Removal, Cholecystectomy, Colectomy, Colonoscopy, Colostomy, Craniotomy, , Cystectomy, Hernia Repair, Hysterectomy, Ileal Conduit, Ileosotomy, Joint Replacement, Kidney Transplant, Laminectomy, Liver Transplant, Mastectomy, Nephrectomy, Oopherectomy, Orchiectomy, Permanent Pacemaker, Prostatectomy, Splenectomy, Stent, Thoracotomy, TURP, Tonsillectomy, Tubal Ligation, Upper Endoscopy, Valve R eplacement, Vasectomy, Vein Stripping/Ligation - Advance Directives Advance Directives: Yes: Living Will - Smoking History Smoking history: Current every day smoker Have you smoked in the past 12 months: Yes Aproximately how many cigarettes per day: 2 - Alcohol/Substance Use Hx Alcohol Use: No History of Substance Use: reports: None - Social History Usual Living Arrangement: Yes: With Significant Other Do you think of yourself as: Straight/Heterosexual ADL: Independent History of Recent Travel: No Home Medications - Allergies Allergies/Adverse Reactions: Allergies Allergy/AdvReac Type Severity Reaction Status Date / Time shellfish derived Allergy cant breath Verified 06/04/20 13:52 - Home Medications Home Medications: Ambulatory Orders Albuterol Sulfate Inhaler - [Ventolin Hfa Inhaler -] 1 - 2 inh PO QID PRN 06/03/20 Family Medical History Family History: Denies Review of Systems - Review of Systems Constitutional: reports: No Symptoms Eyes: reports: No Symptoms HENT: reports: No Symptoms Neck: reports: No Symptoms Cardiovascular: reports: No Symptoms Respiratory: reports: No Symptoms Gastrointestinal: reports: No Symptoms Genitourinary: reports: No Symptoms Breasts: reports: No Symptoms Reported Musculoskeletal: reports: No Symptoms Integumentary: reports: No Symptoms Neurological: reports: No Symptoms Endocrine: reports: No Symptoms Hematology/Lymphatic: reports: No Symptoms Psychiatric: reports: No Symptoms Physical Examination Constitutional: Yes: Well Nourished, No Distress, Calm Eyes: Yes: WNL, Conjunctiva Clear, EOM Intact HENT: Yes: WNL, Atraumatic, Normocephalic Neck: Yes: WNL, Supple, Trachea Midline Cardiovascular: Yes: WNL, Regular Rate and Rhythm Respiratory: Yes: WNL, Regular, CTA Bilaterally Gastrointestinal: Yes: WNL, Normal Bowel Sounds, Soft ...Rectal Exam: Yes: WNL Renal/: Yes: WNL Breast(s): Yes: WNL Musculoskeletal: Yes: WNL Extremities: Yes: WNL Edema: No Peripheral Pulses WNL: Yes Integumentary: Yes: WNL Wound/Incision: Yes: Clean/Dry, Well Approximated Neurological: Yes: WNL, Alert, Oriented ...Motor Strength: WNL Psychiatric: Yes: WNL, Alert, Oriented Assessment/Plan lazarus uterine ablation, d and c , hysteroscopy
[2020-06-05] MEDS ORDERED: MIDAZOLAM HCL 2 MG/2 ML SINGLE DOSE VIAL ONE (16:46)
[2020-06-05] MEDS ORDERED: PROPOFOL 20 ML ONE ×2 (16:46→17:29)
[2020-06-05] MEDS ORDERED: KETOROLAC TROMETHAMINE 30 MG/1 ML VIAL ONE (17:28)
[2020-06-05] MEDS ORDERED: DEXAMETHASONE SOD PHOSPHATE 4 MG/1 ML VIAL ONE (17:28)
[2020-06-05] MEDS ORDERED: ONDANSETRON 4 MG/2 ML VIAL IVPUSH PRN (17:46)
[2020-06-05] MEDS ORDERED: oxyCODONE HCL 5 MG TABLET PO PRN ×2 (17:46→18:29)
[2020-06-05] MEDS ORDERED: PROMETHAZINE HCL 25 MG/1 ML VIAL IVPUSH PRN (17:46)
[2020-06-05] MEDS ORDERED: LACTATED RINGERS SOLUTION 1,000 ML IV SCH ×2 (18:00→18:30)
[2020-06-05] MEDS ORDERED: IBUPROFEN 400 MG TABLET (FP) PO PRN (18:29)
[2020-06-05] MEDS ORDERED: ACETAMINOPHEN 325 MG TABLET (FP) PO PRN (18:29)
--- NOTE | 2020-06-05 18:32 | OP ---
Operative Note - Note: Operative Date: 06/05/20 Pre-Operative Diagnosis: menorrhagia Operation: d and c , hysteroscopy, uterine ablation Findings: no submucosa fibroids Post-Operative Diagnosis: Same as Pre-op Surgeon: Baljit Ott Anesthesiologist/SUPERVISOR [employer]: Haley Graham Anesthesia: General Estimated Blood Loss (mls): 2 Operative Report Dictated: Yes
[2020-06-05] MEDS ORDERED: ACETAMINOPHEN INJECTION 100 ML IVPB ONE (18:50)
[2020-06-05] MEDS ORDERED: ACETAMINOPHEN 1000 MG/100 ML VIAL (NON FORMULARY) IVPB ONE (18:55)
[2020-06-05] MEDS ORDERED: oxyCODONE HCL 5 MG TABLET ONE (19:36)
[2020-06-05 20:38] VITALS: BP 142/80; PULSE 68; TEMP 97.8
--- NOTE | 2020-06-07 14:02 | OP ---
DATE OF OPERATION: 06/05/2020 PREOPERATIVE DIAGNOSIS: Menorrhagia. POSTOPERATIVE DIAGNOSIS: Menorrhagia. PROCEDURE: Dilation and curettage, hysteroscopy and endometrial uterine ablation. SURGEON: Baljit Ott MD ANESTHESIOLOGIST: Haley Graham MD ANESTHESIA: General. INDICATION: This 50-year-old female patient had a history of menorrhagia for many months and the patient does not have a large fibroid uterus. So, all the risks, benefits and alternatives explained to the patient. The patient did not want to take anymore control pills, so the patient was taken to the OR for D&C, hysteroscopy and uterine ablations. DESCRIPTION OF PROCEDURE: The patient was placed on the operating table in the supine position. After general anesthesia was obtained, the patient was placed in the lithotomy position. The patient's abdomen and pelvis were prepped and draped in the usual sterile manner. Heavy speculum was placed into patient's vagina. Cervix was grasped with tenaculum and sounded and dilated and the D&C was performed. Endometrial tissue was sent to Pathology. Then we proceeded to the hysteroscopy procedure. Endometrial cavity was . Hysteroscopy and ablation were done at the same time. No submucosal fibroid was seen and no significant pathology was seen. So, endometrial ablation was performed successfully and no complications. Tolerated procedure well. Blood loss was about 2 mL. Was awakened from general anesthesia, transferred to recovery room in stable condition. MD SIM OWENS/[id number]
--- NOTE | 2020-06-09 17:47 | PATH ---
Surgical Pathology Report Patient Name: CARI PERALTA [facility]. Rec. #: [id number] /Age/Gender: 1970 (Age: 50) / F Account: [id number] Location: [facility] SURGICAL Taken: 06/05/2020 Received: 06/08/2020 Reported: 06/09/2020 Physicians: Baljit Ott MD Specimen(s) Received ENDOMETRIAL CURETTINGS Clinical History Menorrhagia Final Diagnosis ENDOMETRIAL CURETTINGS: PORTION OF ENDOMETRIAL POLYP. FRAGMENTS OF SUPERFICIAL WEAKLY PROLIFERATIVE ENDOMETRIUM. SEPARATE FRAGMENTS OF ENDOCERVICAL TISSUE WITH SQUAMOUS METAPLASIA. Electronically Signed Bipin Hillman M.D. Gross Description Received in formalin labeled "endometrial curettings," is a 1.6 x 1.4 x 0.3 cm aggregate of wilson brown soft tissue fragments. The formalin is filtered and the specimen is entirely submitted in one cassette. /06/08/2020 [facility]/06/08/2020
== END 2020-06-05 20:30 | disposition home or self-care (01) ==
LOC: JASU-SURG 05:22
PROVIDERS: ATTEND Obstetrics & Gynecology
PROC: 0U5B8ZZ Destruction of Endometrium, Via Natural or Artificial Opening Endoscopic (ICD-10-PCS; principal; 2020-06-05 15:00)
PROC: 0UDB7ZX Extraction of Endometrium, Via Natural or Artificial Opening, Diagnostic (ICD-10-PCS; 2020-06-05 15:00)
DX: N92.0 Excessive and frequent menstruation with regular cycle (principal)
CPT/HCPCS: 36415; 81025; 86780; 86850; 86900; 86901; 88305-TC; 94760; J0131

== ENCOUNTER 2022-07-16 08:35 | Emergency (ER) | payer OTHER, BC ==
[2022-07-16 09:05] VITALS: BP 145/97; PULSE 78; RESP 18; TEMP 97.3; BMI 34.7
[2022-07-16] MEDS ORDERED: KETOROLAC TROMETHAMINE 30 MG/1 ML VIAL IM ONE (09:41)
[2022-07-16] MEDS ORDERED: KETOROLAC TROMETHAMINE 30 MG/1 ML VIAL ONE (09:51)
== END 2022-07-16 10:47 | disposition home or self-care (01) ==
LOC: JERFT 08:35
PROC: 3E0233Z Introduction of Anti-inflammatory into Muscle, Percutaneous Approach (ICD-10-PCS; principal; 2022-07-16)
DX: M25.562 Pain in left knee (principal)
CPT/HCPCS: 99284-25

== ENCOUNTER 2022-10-04 13:40 | Emergency (ER) | payer BC, OTHER ==
[2022-10-04 14:01] VITALS: BP 130/87; PULSE 58; RESP 20; TEMP 98.6; BMI 35.1
[2022-10-04] MEDS ORDERED: ACETAMINOPHEN 1000 MG/100 ML BAG IVPB ONE (15:23)
[2022-10-04] MEDS ORDERED: FAMOTIDINE 20 MG/50 ML IVPB 20 MG/50 ML MG IVPB ONE ×2 (15:23→17:08)
[2022-10-04 16:33] LABS: BASO % 0.3 % (0-2.0); EOS % 1.1 % (0-4.5); HEMATOCRIT 37.8 % (32.4-45.2); HEMOGLOBIN 12.3 GM/dL (10.7-15.3); LYMPH % 34.4 % (8-40); MCH 27.2 pg (25.7-33.7); MCHC 32.6 g/dl (32.0-36.0); MEAN CELL VOLUME 83.3 fl (80-96); MONO % 4.6 % (3.8-10.2); NEUT % 59.6 % (42.8-82.8); PLATELET COUNT 243 10^3/uL (134-434); RBC 4.54 M/mm3 (3.60-5.2); RDW 14.5 % (11.6-15.6)
[2022-10-04 16:56] LABS: BLOOD UREA NITROGEN 13.9 mg/dL (7-18); CALCIUM 9.3 mg/dL (8.5-10.1)
[2022-10-04 16:59] LABS: CREATININE 0.8 mg/dL (0.55-1.3)
[2022-10-04 17:01] LABS: BILIRUBIN,TOTAL 0.4 mg/dL (0.2-1); TOT PROT 7.3 g/dl (6.4-8.2)
[2022-10-04] MEDS ORDERED: ACETAMINOPHEN INJECTION 100 ML IVPB ONE (17:08)
== END 2022-10-04 17:36 | disposition home or self-care (01) ==
LOC: JER 13:40
PROC: 3E033GC Introduction of Other Therapeutic Substance into Peripheral Vein, Percutaneous Approach (ICD-10-PCS; principal; 2022-10-04)
DX: R07.9 Chest pain, unspecified (principal)
CPT/HCPCS: 36415; 71046-TC-FY; 74019-TC-FY; 80053; 84484; 85025; 93005; 93010; 99285-25

== ENCOUNTER 2024-01-05 07:11 | Emergency (ER) | payer BC, OTHER ==
[2024-01-05 07:22] VITALS: TEMP 97.3; BMI 34.5
[2024-01-05] MEDS ORDERED: ACETAMINOPHEN INJECTION 100 ML IVPB ONE (09:15)
[2024-01-05] MEDS ORDERED: FAMOTIDINE 20 MG/50 ML IVPB 20 MG/50 ML MG IVPB ONE (09:16)
[2024-01-05] MEDS ORDERED: MAG HYDROX/AL HYDROX/SIMETH 30 ML UNIT-DOSE CUP ONE (09:16)
[2024-01-05] MEDS ORDERED: ONDANSETRON 4 MG/2 ML VIAL ONE (09:23)
[2024-01-05] MEDS: MAG HYDROX/AL HYDROX/SIMETH 30 ML UNIT-DOSE CUP PO ONE (09:40)
[2024-01-05] MEDS: ACETAMINOPHEN 1000 MG/100 ML BAG IVPB ONE (09:41)
[2024-01-05] MEDS: FAMOTIDINE 20 MG/50 ML IVPB 20 MG/50 ML MG IVPB ONE (09:41)
[2024-01-05] MEDS: SODIUM CHLORIDE 0.9% 500 ML INFUS.BAG IV ONE (09:41)
[2024-01-05] MEDS: ONDANSETRON 4 MG/2 ML VIAL IVPUSH ONE (09:42)
[2024-01-05 09:56] LABS: URINE APPEARANCE CLEAR; URINE BILIRUBIN NEGATIVE (NEGATIVE); URINE COLOR YELLOW; URINE GLUCOSE (UA) NEGATIVE (NEGATIVE); URINE KETONE NEGATIVE (NEGATIVE); URINE LEUK ESTERASE NEGATIVE (NEGATIVE); URINE NITRITE NEGATIVE (NEGATIVE); URINE PROTEIN NEGATIVE (NEGATIVE); URINE UROBILINOGEN 0.2 mg/dL (0.2-1.0)
[2024-01-05 10:05] LABS: BASO % 0.6 % (0-2.0); EOS % 1.7 % (0-4.5); HEMATOCRIT 36.6 % (32.4-45.2); HEMOGLOBIN 11.8 GM/dL (10.7-15.3); LYMPH % 34.1 % (8-40); MCH 24.9 pg (25.7-33.7); MCHC 32.3 g/dl (32.0-36.0); MEAN CELL VOLUME 77.1 fl (80-96); MEAN PLT VOLUME 8.5 fl (7.5-11.1); MONO % 6.1 % (3.8-10.2); NEUT % 57.5 % (42.8-82.8); PLATELET COUNT 248 10^3/uL (134-434); RBC 4.75 M/mm3 (3.60-5.2); RDW 16.4 % (11.6-15.6); WHITE BLOOD COUNT 7.6 K/mm3 (4.0-10.0)
[2024-01-05 10:16] LABS: POTASSIUM 4.1 mmol/L (3.5-5.1)
[2024-01-05 10:19] LABS: CALCIUM 9.4 mg/dL (8.5-10.1)
[2024-01-05 10:20] LABS: ALBUMIN 3.8 g/dl (3.4-5.0); BLOOD UREA NITROGEN 12.7 mg/dL (7-18)
[2024-01-05 10:22] LABS: CREATININE 0.9 mg/dL (0.55-1.3)
[2024-01-05 10:24] LABS: BILIRUBIN,TOTAL 0.5 mg/dL (0.2-1); TOT PROT 7.4 g/dl (6.4-8.2)
[2024-01-05 11:28] VITALS: BP 143/90; PULSE 69; RESP 20
== END 2024-01-05 11:49 | disposition home or self-care (01) ==
LOC: JER 07:11
PROC: 3E033GC Introduction of Other Therapeutic Substance into Peripheral Vein, Percutaneous Approach (ICD-10-PCS; principal; 2024-01-05)
PROC: 3E030NZ Introduction of Analgesics, Hypnotics, Sedatives into Peripheral Vein, Open Approach (ICD-10-PCS; 2024-01-05)
PROC: 3E030GC Introduction of Other Therapeutic Substance into Peripheral Vein, Open Approach (ICD-10-PCS; 2024-01-05)
DX: R55 Syncope and collapse (principal); K21.00 Gastro-esophageal reflux disease with esophagitis, without bleeding; R11.0 Nausea; R30.0 Dysuria; R10.13 Epigastric pain; R10.30 Lower abdominal pain, unspecified
CPT/HCPCS: 36415; 76705-TC; 80053; 81003; 83690; 83735; 84484; 84703; 85025; 87086; 93005; 93010; 96365; 96375; 99285-25; J0131